=== PATIENT | female | born 1995 | race Caucasian/White ===

== ENCOUNTER → 2021-01-06 | Outpatient (CLI) | payer OTHER, SELFPAY ==
[2021-01-06 12:17] LABS: Probe Check PASS; Specimen Processing Control PASS
== END | disposition home or self-care (01) ==
LOC: LABSPEC 09:08
PROVIDERS: PCP Pediatrics; Visit Provider Physician Assistant
DX: Z20.822 Contact with and (suspected) exposure to COVID-19 (principal)
CPT/HCPCS: 87635; U0005; U0003

== ENCOUNTER 2021-05-23 17:01 | Outpatient (CLI) | payer OTHER, SELFPAY | END 2021-05-23 23:59 | disposition short-term general hospital (02) | LOC: LABSPEC 17:03 | PROVIDERS: PCP Pediatrics; Referring Provider Physician Assistant; Visit Provider Physician Assistant | DX: U07.1 COVID-19 (principal) | CPT/HCPCS: 87635; U0003; U0005 ==

== ENCOUNTER 2023-01-17 07:07 | Inpatient (IN) | payer OTHER, SELFPAY ==
[2023-01-17] VITALS (29 sets, daily range): BP systolic 108–137; BP diastolic 59–89; PULSE 54–93; TEMP 36.3–36.9; O2SAT 98–100; BMI 46.5
[2023-01-17] MEDS: Lactated Ringers 1,000 ML 50 ML IV (08:26)
[2023-01-17] MEDS: 0.9% Normal Saline Single 100 ML IV.SOLN. INTRA-UTER (08:50)
--- NOTE | 2023-01-17 08:55 | PCM.HP.OB ---
HPI - General General Date of Admission: 01/17/23 HPI Narrative LISSETH DUBOSE, is a 27 F at 39.3 weeks gestation who presents for induction of labor for obesity. has been complicated by marijuana use, tobacco use, and history of depression. Maternal Data Information YAMILKA Calculator Estimated Delivery Date Method Current WG Current Estimate 01/21/23 Manual 39w 3d PFSH PFSH Home Medications sertraline 50 mg tablet 75 mg PO Q24H depression 01/17/23 [History Last Taken 01/16/23 21:00] Allergy/AdvReac Type Severity Reaction Status Date / Time No Known Allergies Allergy Verified 01/17/23 11:19 Social History Smoking Status: Current every day smoker History Elective abortions Hx Para 0 Spontaneous abortions Hx # Term Pregnancies Ectopic pregnancies Hx # Pregnancies Multiple births # of living children ROS Eyes Eyes: Denies blurry vision, change in vision or spots in vision ENT HEENT: Denies dizziness or headache(s) Cardiovascular Cardiovascular: Denies abdominal pain, chest pain or dyspnea Respiratory/Chest Respiratory/Chest: Denies cough, dyspnea, shortness of breath at rest or shortness of breath with exertion Gastrointestinal Gastrointestinal: Denies abdominal pain, diarrhea or vomiting Genitourinary Genitourinary: Denies change in urinary stream, difficulty urinating or dysuria Musculoskeletal Musculoskeletal: Reports none Integumentary Integumentary: Denies rash Neurologic Neurologic: Denies dizziness, headache(s), memory loss or weakness Psychiatric Psychiatric: Reports none Vital Signs Vital Signs Vital Signs: 01/17/23 07:21 01/17/23 07:21 01/17/23 07:35 Pulse Rate 88 Blood Pressure 137/89 H 123/61 H BP Systolic 137 123 BP Diastolic 89 61 01/17/23 07:35 Pulse Rate 93 Blood Pressure BP Systolic BP Diastolic Weight Weight: 263 lb 2 oz Body Mass Index (BMI) 46.5 Physical Exam Const alert, oriented x3 and no apparent distress General Appearance: cooperative Orientation / Consciousness: awake Exam Limitations: no limitations HEENT normocephalic Head and Scalp: normal to inspection Eyes General Eye: normal appearance of both eyes Neck full ROM and no lymphadenopathy Lymph Lymphatic: no lymphadenopathy noted Chest inspection of chest normal Resp normal respiratory effort, normal air movement and clear to auscultation bilaterally Effort and Inspection: able to speak in complete sentences and symmetric chest movement Cardio regular rate and regular rhythm GI normal to inspection, nondistended, normoactive bowel sounds Manual OB Exam: presentation cephalic Back/Spine normal ROM Extremity full ROM and no calf tenderness Skin no rashes or lesions noted General Skin Exam: no breakdown Neuro oriented x3 and CN's II-XII intact bilaterally Psych mental status grossly normal and thought process normal Labs Labs Labs: Blood Type O POSITIVE Antibody Screen NEGATIVE Hct 37.1 % (37-47) Hgb 12.7 g/dL (12.0-15.0) Syphilis Total Ab Non-reactive GBS negative Assessment & Plan (1) 39 weeks gestation of : (2) Tobacco smoking affecting : (3) Marijuana use during : (4) History of depression: (5) Encounter for induction of labor: (6) Obesity affecting : (7) History of asthma: PLAN: Plan Admit to labor and delivery CE /-2 Mata bulb placed without difficulty and filled with 40 cc N/S Start Cytotec 25 mcg PO every 4 hours- notify provider before each dose Routine labs GBS negative Dr. Reynoso notified of admission and is collaborating physician
[2023-01-17 09:04] LABS: Absolute Lymphocyte Count 2.33 X10^3/uL (0.83-4.51); Absolute Neutrophil Count 11.9 X10^3/uL (2.0-7.7); Basophil# 0.06 X10^3/uL; Basophil% 0.4 % (0-1); Eosinophil# 0.08 X10^3/uL; Eosinophils% 0.5 % (0-5); Hematocrit 37.1 % (37-47); Hemoglobin 12.7 g/dL (12.0-15.0); Lymphocyte # 2.33 X10^3/ul (0.83-4.51); Lymphocyte % 14.8 % (19-41); Mean Corp Hgb Conc 34.2 g/dL (32-36); Mean Corpuscular Hgb 30.4 pg (27.0-32.0); Mean Corpuscular Volume 88.8 fL (81-99); Monocyte# 1.19 X10^3/uL; Monocyte% 7.6 % (0-10); NRBC Flagged by Analyzer 0 % (0-5); Neutrophil % 75.7 % (47-70); Platelet Count 211 K/mm3 (150-450); RBC Distribution Width CV 12.8 % (11.6-14.6); RBC Distribution Width SD 41.6 fl (35.1-43.9); Red Blood Count 4.18 M/mm3 (4.2-5.4); White Blood Count 15.7 K/mm3 (4.4-11.0)
[2023-01-17] MEDS: miSOPROStol 25 MCG TABLET PO (09:05)
[2023-01-17 09:56] LABS: Syphilis Antibodies Non-reactive
[2023-01-17] MEDS: Oxytocin 15 Units/NS 250ml 15 UNITS/250 ML IV.SOLN 2 UNITS IV (12:45)
[2023-01-17] MEDS: LACTATED RINGERS 500 ML 999 ML IV (15:57)
[2023-01-17] MEDS: fentaNYL-bupivacaine (epidural) 100 ML BAG EPIDURAL ×2 (17:30→21:22)
--- NOTE | 2023-01-17 17:36 | PN.OBGYN_ITS ---
Subjective Subjective Patient seen at bedside. Comfortable with epidural. Objective Data Objective Data Vital Signs: Vital Signs Temp Pulse BP Pulse Ox 97.3 F L 73 122/79 H 99 01/17/23 14:59 01/17/23 17:29 01/17/23 17:29 01/17/23 17:08 Weight: 263 lb 2 oz Body Mass Index (BMI) 46.5 Intake & Output: Intake and Output for Last 24 Hours 01/15/23 01/16/23 01/17/23 23:59 23:59 23:59 Intake Total 276.17 / 276.17 Output Total 200 / 200 Balance 76.17 / 76.17 Lab / Micro Data 01/17/23 08:45 Labs: Laboratory Results - last 24 hr 01/17/23 08:45: WBC 15.7 H, RBC 4.18 L, Hgb 12.7, Hct 37.1, MCV 88.8, MCH 30.4, MCHC 34.2, RDW Std Deviation 41.6, RDW Coeff of Dennis 12.8, Plt Count 211, MPV 11.0, Immature Gran % (Auto) 1.000 H, Neut % (Auto) 75.7 H, Lymph % (Auto) 14.8 L, Emmet % (Auto) 7.6, Eos % (Auto) 0.5, Baso % (Auto) 0.4, Absolute Neuts (auto) 11.9 H, Absolute Lymphs (auto) 2.33, Nucleated RBC % 0, Syphilis Total Ab Non- reactive, Blood Type O POSITIVE, Antibody Screen NEGATIVE ROS Eyes Eyes: Denies blurry vision, change in vision or spots in vision ENT HEENT: Denies dizziness or headache(s) Cardiovascular Cardiovascular: Denies abdominal pain, chest pain or dyspnea Respiratory/Chest Respiratory/Chest: Denies cough, dyspnea, shortness of breath at rest or shortness of breath with exertion Gastrointestinal Gastrointestinal: Denies abdominal pain, diarrhea or vomiting Genitourinary Genitourinary: Denies change in urinary stream, difficulty urinating or dysuria Musculoskeletal Musculoskeletal: Reports none Integumentary Integumentary: Denies rash Neurologic Neurologic: Denies dizziness, headache(s), memory loss or weakness Assessment & Plan (1) History of asthma: (2) Obesity affecting : (3) Encounter for induction of labor: (4) History of depression: (5) Marijuana use during : (6) Tobacco smoking affecting : (7) 39 weeks gestation of : PLAN: Plan Cat. 1 tracing, NST reactive Pitocin at 8 mu/min- continue to increase per policy CE- 5.5/70/-2 GBS negative AROM for moderate amount of clear fluid IUPC and FSE placed without difficulty Anticipate
[2023-01-17] MEDS: Ondansetron 4 MG/2 ML Vial IV (19:20)
[2023-01-17] MEDS: Lactated Ringers 1,000 ML 200 ML IV (20:07)
[2023-01-18] VITALS (41 sets, daily range): BP systolic 111–136; BP diastolic 60–77; PULSE 70–104; RESP 16–18; TEMP 35.9–36.9; O2SAT 95–100
--- NOTE | 2023-01-18 02:08 | EX.PCM.OBRPT ---
Assessment & Plan (1) Vacuum extractor delivery, delivered: (2) Single live : (3) 39 weeks gestation of : Maternal Data Information YAMILKA Calculator Estimated Delivery Date Method Current WG Current Estimate 01/21/23 Manual 39w 4d Final YAMILKA: 01/21/23 Gestational age: 39 4/7 Vaginal Delivery Maternal Presentation Maternal Presentation: Medically Indicated Induction Type of Induction: Pitocin, Mata Bulb and Amniotomy Operative Information Date of Procedure: 01/18/23 Pre-Operative Diagnosis: labor, maternal exhaustion Post-Operative Diagnosis: same Surgery / Procedure Performed: Vacuum Assisted Vaginal Delivery aviation ordnance officer #1: Shireen Urbina Type of Anesthesia: Epidural Special Medications: none Drain: Mata to straight drain Estimated Blood Loss: 500 Time of Delivery: 01:42 Findings Description of Procedure: Patient was complete and pushing for approximately 90 minutes. During the last 40 minutes she had not made significant progress. She was having good effort but her contractions were spaced out. She had intermittent deep variables so Pitocin cannot be increased. I discussed with the patient and her partner risk benefits and alternatives to trial of vacuum-assisted vaginal delivery. Pelvis was adequate. Estimated weight is less than 4500 g clinically. Position was MARILYNN. Head was plus 4 out of 5 station and It was labia with maternal pushing efforts. The vacuum was placed in the vacuum created 550 mmHg. I pulled with 1 contraction. And there was 1 pop-off. I then replaced the vacuum pulled with the next contraction and the head was almost . I pulled with the next contraction to and the vacuum was removed and the patient delivered the remainder the head with maternal pushing efforts only. A vigorous female infant was delivered MARILYNN over a second-degree perineal laceration. The remainder the was delivered with maternal pushing and gentle traction only in less than 15 seconds. The Pitocin infusion was initiated for active management of the third stage. The cord was clamped and cut after cord pulsations ceased. The infant was attended to by the waiting nursing staff. The placenta was delivered spontaneously and intact. The cervix and vagina were intact. The second-degree perineal laceration was repaired with 3-0 Vicryl suture in a running standard fashion. Sponge and needle counts were correct. A vaginal sweep was completed by me. Presentation: MARILYNN Amniotic Membrane Rupture Type: Artificial Amniotic Fluid Description: Clear Placental Delivery Description: Spontaneous Placenta Disposition: [facility] Cord Vessel Description: 3 Vessels Cord Entanglement: None Cord Gases: ABG and VBG A Gender: Female (1 minute): 8 (5 minute): 9 Delayed Cord Clamping: Yes Post Vaginal Delivery Medications Given After Delivery: IV Pitocin Episiotomy Description: None Laceration: 2nd degree Complication Complications: None
[2023-01-18] MEDS: Oxytocin 15 Units/NS 250ml 15 UNITS/250 ML IV.SOLN 83 UNITS IV (02:18)
--- NOTE | 2023-01-18 03:02 | NURSING ---
Pitocin was restarted at 2mu/hr in OR for pushing at 0051. Rn unable to edit on EMAR.
[2023-01-18] MEDS: Acetaminophen 500 MG Tablet 1000 MG PO ×2 (03:11→20:42)
[2023-01-18] MEDS: Naproxen 500 MG Tablet PO (09:52)
--- NOTE | 2023-01-18 14:06 | NURSING ---
This nursing assistant reviewed the documentation completed by Delphine Rob student nurse.
[2023-01-19 02:40] VITALS: BP 121/76; PULSE 80; RESP 16; TEMP 36.7
[2023-01-19 02:41] VITALS: BP 121/76; PULSE 80
[2023-01-19 08:27] VITALS: BP 127/76; PULSE 73
--- NOTE | 2023-01-19 08:27 | PCM.PN.OB ---
Subjective Subjective Patient seen at bedside. Ambulating and voiding without difficulty. Denies headache, dizziness, CP, or SOB. Lochia decreasing. with minimal support. Desires discharge home today. Objective Data Objective Data Vital Signs: Vital Signs Temp Pulse Resp BP Pulse Ox O2 Del Method 98.0 F 80 16 121/76 H 98 Room Air 01/19/23 02:40 01/19/23 02:41 01/19/23 02:40 01/19/23 02:41 01/18/23 20:43 01/18/23 20:43 Oxygen Delivery Method Room Air Weight: 263 lb 2 oz Body Mass Index (BMI) 46.5 Intake & Output: Intake and Output for Last 24 Hours 01/17/23 01/18/23 01/19/23 23:59 23:59 23:59 Intake Total 1136.64 / 1136.64 1447.53 / 1447.53 Output Total 900 / 900 900 / 900 Balance 236.64 / 236.64 547.53 / 547.53 Lab / Micro Data 01/17/23 08:45 ROS Eyes Eyes: Denies blurry vision, change in vision or spots in vision ENT HEENT: Denies dizziness or headache(s) Cardiovascular Cardiovascular: Denies abdominal pain, chest pain or dyspnea Respiratory/Chest Respiratory/Chest: Denies cough, dyspnea, shortness of breath at rest or shortness of breath with exertion Gastrointestinal Gastrointestinal: Denies abdominal pain, diarrhea or vomiting Genitourinary Genitourinary: Denies change in urinary stream, difficulty urinating or dysuria Musculoskeletal Musculoskeletal: Reports none Integumentary Integumentary: Denies rash Neurologic Neurologic: Denies dizziness, headache(s), memory loss or weakness Physical Exam Const alert and no apparent distress General Appearance: cooperative and comfortable Exam Limitations: no limitations HEENT normocephalic Eyes General Eye: normal appearance of both eyes Neck full ROM General: normal visual inspection Chest Chest: symmetrical chest wall rise Resp normal respiratory effort and normal air movement Effort and Inspection: symmetric chest movement Auscultation: clear to auscultation bilaterally Cardio regular rate and regular rhythm GI normal to inspection, nondistended, normoactive bowel sounds Back/Spine normal ROM Extremity full ROM and no calf tenderness General Extremity: normal exam except as noted Skin no rashes or lesions noted Neuro CN's II-XII intact bilaterally Psych mental status grossly normal Assessment & Plan (1) Single live : (2) Vacuum extractor delivery, delivered: (3) Obesity affecting : (4) Care and examination of lactating mother: PLAN: Plan PPD 2 Vacuum assisted delivery Breast feeding with support Ambulating and voiding without difficulty Desires discharge home with follow up in office
--- NOTE | 2023-01-19 08:30 | DCINST_ITS ---
Discharge Instructions Diet Discharge Diet: No restrictions Activity May resume sexual activity in: 6-8 weeks Weight Bearing Status: Weight bearing as tolerated Dressing / Incision Call your doctor if you observe: Fever of 101 or Higher, Inability to urinate, Using more than 1 pad per hour, Shortness of breath, Chest pain, Calf discomfort and Uncontrolled pain Follow Up Care Please Follow Up With: Shireen Urbina CNM When: 2 weeks virtual visit/ 6 weeks in office Test Results: Test results from this visit will be discussed in further detail at your follow- up appointment, if applicable. Discharge Plan Admission Admit Date/Time: 01/17/23 07:07 Primary Reason for Your Visit: Labor and Delivery Attending Provider: Shireen Urbina Primary Care Provider: Claire Valle Discharge Orders/Prescriptions Prescriptions: Continued sertraline 50 mg tablet 75 mg PO Q24H Referrals / Follow Up: Shireen Urbina CNM [Med Staff - Adv Practice Prof] - Claire Valle PA [Primary Care Provider] - Disposition Disposition (needs filled in before D/C Order can be placed): Home, Self Care
[2023-01-19 08:49] VITALS: BP 127/76; PULSE 73; RESP 14
--- NOTE | 2023-01-19 09:53 | NURSING ---
student charting reviewed and in agreement. JAZZ Morgan instructor
[2023-01-19 10:00] VITALS: BP 123/61; PULSE 71; RESP 14; TEMP 36.9
--- NOTE | 2023-01-19 10:31 | CASEMGMT ---
Social Work Assessment Labor and Delivery Unit Patient Address: [address], [place] [address] Phone number: [phone] Date of Referral: 01/17/23 Time of Referral:? 914 Referred By: Shirene Urbina Date of Intervention: ??01/19/23 Time of Intervention:? 899 Reason for Referral:? Substance abuse There is also a referral for baby of mother of baby (KEVEN- Cherise) due to history of maternal depression and THC use. Note will also be entered into baby's chart. Sw completed chart review and acknowledges social work consults. Sw presented to bedside and introduced self to MOB. Sw explained reason for social work consult. Sw completed psychosocial assessment with MOB and MOB filled out an [place] Depression Scale. History obtained from: medical records and mother of baby (KEVEN)??? Household composition: Currently residing in the family home is KEVEN, father of baby (FOVilma Ocampo) and now baby girl. MOB states that housing is safe and adequate, no housing concerns at this time. Patient's parent/guardian status:?MOB states that she and FOB have been together for 5 years. They met at work. This is first baby for both parents. MOB states that she is safe at home and denies any concerns of domestic violence or intimate partner violence. Medical History: KEVEN is 1, para 0- now 1. KEVEN received routine care during with [facility]. KEVEN presented to hospital for induction and delivered baby on 01/18/23 via vaginal delivery at 39b weeks gestation. Baby girl, named Monica Conti, was born weighing 8lb 8oz and her apgars were 8 and 8 at one and five minutes of life respectfully. MOB states that she is breast feeding and it is going ok. Educational Status:?Both parents graduated from high school, no college education. MOB states that neither parent has difficulties with reading, learning or comprehension. Financial Status: Both parents are gainfully employed outside of the home. Both parents work at [employer] in the [employer] department. KEVEN states that she is able to take off 12 weeks of work for maternity leave and FOTati gets 3 weeks off. Supplies:??MOB states that they have all the necessary baby supplies, including: car seat, safe sleep space, clothes, diapers, wipes and a breast pump. Childcare/Caregiver(s):? KEVEN reports that when both parents are at work baby will be watched by paternal grandma. Transportation:??Both parents have drivers license and reliable means of transportation. No transportation barriers at this time. Programs/Agencies Involved: ?No linkage to community resources at this time. Baby will be followed by fleshing machine operator, Dr. Youngblood at [facility] in [place]. ?? Children Services/Legal Issues:?? No prior involvement with children services. Kash informed KEVEN that sw would need to make a referral to [facility] due to maternal substance use during . MOB expressed understanding. KEVEN denies legal issue for both parents. -Kash called [facility] and made referral to hotline screener, Beatriz Allison. Behavioral Health Issues: ??Mental Health History: KEVEN states that IZABEL has been diagnosed with anxiety, but is not prescribed medications. KEVEN states that IZABEL's anxiety is manageable. KEVEN states that she struggled with her mental health her whole life, and never addressed her depression until about 5 years ago. KEVEN completed the [place] Depression scale and her score was a 2. Kash educated KEVEN on signs and symptoms of baby blues and depression. KEVEN is currently prescribed sertraline to help manage her depression. ??? 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 KEVEN reports that in 2016 she lost her mom to alcholism (her mom tried to get sober without medical attention and ended up dying from withdrawal) and that changed her mind set. KEVEN stated that she wanted to get clean, so she stopped using and has been sober since 2018. KEVEN states that she does use marijuana occasionally, including several times during , the last time being in September. ? Family History:??KEVEN states that both of her parents struggled with alcoholism. KEVEN reports that her mother ultimately due to medical complications of going through alcohol withdrawal without any medical assistance. KEVEN states that after the loss of her mother, her father and other family members also got sober because they did not want to go down that same path. KEVEN states that ulitmately that is also what led her to her own sobriety. ?? Drug Screens: MOB urine screen was negative. Baby urine screen was also negative, but meconium still pending. Family/Social Stressors:? KEVEN states that she has experienced a lot of loss in her life and has overcome her own personal struggle with addiction. MOB states that she is anxious about the referral that sw needs to make to Children Services, but understands that social sciences department chair is mandated to make the referral. Support Systems: KEVEN states that FOB and his family are big supports for her, along with her father. Depression/Shaken Baby/Safe Sleeping:?Sw educated MOB on signs and symptoms of baby blues and depression. Sw provided literature for MOB to review. MOB stated that she and paternal grandma sat down with FOB a couple of weeks ago to discuss these issues/ topics and told FOB to help MOB recognize when she may be struggling. MOB stated that she is not against going up in her medication if warranted during her period. Sw educated MOB on shaken baby prevention and ABCs of safe sleep. MOB expressed understanding. Sw provided active listening and ongoing support/ education. ASSESSMENT: MOB and baby to be discharged when medically ready. Sw [facility] that the referral will be screened in at this time and it is okay for MOB and baby to be discharged. Sw agreed to inform [facility] if meconium screen comes back for any substances. MOB with mental health history positive for depression, currently prescribed medication. MOB aware of signs and symptoms of baby blues and depression. MOB has a lot of natural supports found in family and FOB. ? Safe Plan of Care for related to substance use:?MOB states that she is not using any substances at this time (aside from tobacco) and does not have any intentions of using marijuana unless she is able to obtain her medical marijuana card. MOB states that she is providing breast milk and will not use marijuana during this time. MOB also states that she will smoke tobacco outside and will change clothes/ wash hands prior to holding baby. PLAN:? ?MOB and baby to be discharged when medically ready. No other services requested or indicated. Avelino Bowser, SOLUTIONS ARCHITECT CONSULTANT, BOW REPAIRER CUSTOM
[2023-01-19 13:08] VITALS: BP 123/61; PULSE 71
== END 2023-01-19 14:40 | disposition home or self-care (01) | DRG 806 ==
PROVIDERS: Obstetrics & Gynecology; Admitting Provider Advanced Practice Midwife; PCP Physician Assistant; Referring Provider Advanced Practice Midwife; Visit Provider Advanced Practice Midwife
DX: O76 Abnormality in fetal heart rate and rhythm complicating labor and delivery (principal); Z37.0 Single live birth; O99.324 Drug use complicating childbirth; F12.99 Cannabis use, unspecified with unspecified cannabis-induced disorder; F32.A Depression, unspecified; F17.200 Nicotine dependence, unspecified, uncomplicated; O99.214 Obesity complicating childbirth; O70.1 Second degree perineal laceration during delivery; O99.334 Smoking (tobacco) complicating childbirth; O99.344 Other mental disorders complicating childbirth; O75.81 Maternal exhaustion complicating labor and delivery; Z79.899 Other long term (current) drug therapy; Z3A.39 39 weeks gestation of pregnancy; Z86.16 Personal history of COVID-19
CPT/HCPCS: 59025; 59050; 85025; 86780; 86850; 86900; 86901; 99221; J7120; G0378; J2405